=== PATIENT | female | born 1950 | race Caucasian/White ===

== ENCOUNTER 2019-03-06 16:15 | Inpatient (IN) | payer MEDICARE, OTHER ==
[~2019-03-06] VITALS: Ht 165.1 cm; Wt 56.3 kg
[2019-03-06 16:30] VITALS: BP 131/68
[2019-03-06] MEDS ORDERED: MAGNESIUM HYDROXIDE SUSPENSION 30 ML UDCUP PO PRN (20:15)
[2019-03-06] MEDS ORDERED: ACETAMINOPHEN 325 MG TABLET PO PRN (20:15)
[2019-03-06] MEDS ORDERED: ALBUTEROL SULFATE 2.5 MG/0.5 ML NEB SOLUTION NEB PRN (20:15)
[2019-03-06] MEDS ORDERED: IPRATROPIUM BROMIDE 0.5 MG/2.5 ML NEB SOLUTION NEB PRN (20:15)
[2019-03-06] MEDS ORDERED: MELATONIN 3 MG TABLET PO PRN (20:15)
[2019-03-06] MEDS ORDERED: LACTULOSE 20 GM/30 ML SOLUTION UDCUP PO PRN (20:15)
[2019-03-06] MEDS ORDERED: SODIUM PHOS/SODIUM BIPHOS 133 ML ENEMA PR PRN (20:15)
[2019-03-06] MEDS: DOCUSATE SODIUM 100 MG CAPSULE PO SCH ×2 (20:50→20:56)
[2019-03-06] MEDS: SENNA 187 MG TABLET PO SCH ×2 (20:50→20:56)
[2019-03-07 00:45] VITALS: BP 96/46
[2019-03-07 06:00] VITALS: BP 118/66
[2019-03-07 07:12] VITALS: BP 111/64
[2019-03-07 08:12] LABS: BASOPHILS % (AUTO) 1.4 % (0.0-2.0); EOSINOPHILS % (AUTO) 2.2 % (1.0-6.0); HEMATOCRIT 34.4 % (36-46); HEMOGLOBIN 12.2 g/dL (12.0-16.0); LYMPHOCYTES # (AUTO) 1.7 K/uL (1.0-4.8); LYMPHOCYTES % (AUTO) 36.4 % (22.0-44.0); MEAN CORPUSCULAR HEMOGLOBIN 33.1 pg (26.0-34.0); MEAN CORPUSCULAR HGB CONC 35.6 G/dL (31.0-37.0); MEAN CORPUSCULAR VOLUME 93 fL (80-100); MONOCYTES # (AUTO) 0.5 K/uL (0.1-1.0); MONOCYTES % (AUTO) 11.6 % (2.0-9.0); NEUTROPHILS # (AUTO) 2.3 K/uL (1.8-7.7); NEUTROPHILS % (AUTO) 48.4 % (40.0-70.0); PLATELET COUNT (AUTO) 328 K/uL (150-450); RED CELL DISTRIBUTION WIDTH 12.9 % (11.5-14.5)
[2019-03-07 08:22] LABS: ALANINE AMINOTRANSFERASE 47 U/L (12-78); ALBUMIN 3.2 g/dL (3.4-5.0); ALKALINE PHOSPHATASE 78 U/L (46-116); ANION GAP 8 mmol/L (8-16); ASPARTATE AMINOTRANSFERASE 34 U/L (15-37); BILIRUBIN,TOTAL 0.2 mg/dL (0.1-1.0); CARBON DIOXIDE 26 mmol/L (22-29); CHLORIDE 106 mmol/L (98-107); CREATININE 0.75 mg/dL (0.60-1.30); GLOMERULAR FILTR. RATE CALC > 60 mL/min (>60); GLUCOSE,RANDOM 93 mg/dL (70-110); SODIUM SERUM 140 mmol/L (136-145); TOTAL PROTEIN, SERUM 6.6 g/dL (6.4-8.2); UREA NITROGEN, BLOOD 11 mg/dL (7-18)
[2019-03-07] MEDS: DOCUSATE SODIUM 100 MG CAPSULE PO SCH ×2 (09:00→20:12)
[2019-03-07] MEDS: LISINOPRIL 10 MG TABLET PO SCH (09:00)
[2019-03-07] MEDS: ASPIRIN 325 MG TABLET PO SCH (09:51)
[2019-03-07] MEDS: MULTIVITAMINS WITH MINERALS, THERAPEUTIC TABLET PO SCH (09:51)
[2019-03-07 15:32] VITALS: BP 90/47
[2019-03-07 17:00] VITALS: BP 102/56
[2019-03-07] MEDS: ATORVASTATIN CALCIUM 40 MG TABLET PO SCH (20:06)
[2019-03-07] MEDS: SENNA 187 MG TABLET PO SCH (20:12)
[2019-03-08 06:00] VITALS: BP 106/59
[2019-03-08 07:37] VITALS: BP 110/66
[2019-03-08] MEDS: DOCUSATE SODIUM 100 MG CAPSULE PO SCH ×2 (07:58→19:38)
[2019-03-08] MEDS: ASPIRIN 325 MG TABLET PO SCH (07:58)
[2019-03-08] MEDS: MULTIVITAMINS WITH MINERALS, THERAPEUTIC TABLET PO SCH (07:58)
[2019-03-08] MEDS: LISINOPRIL 10 MG TABLET PO SCH (07:58)
[2019-03-08 17:04] VITALS: BP 100/59
[2019-03-08] MEDS: SENNA 187 MG TABLET PO SCH (19:38)
[2019-03-08] MEDS: NYSTATIN 15 GM POWDER BOTTLE TP SCH (19:38)
[2019-03-08] MEDS: ATORVASTATIN CALCIUM 40 MG TABLET PO SCH (19:38)
[2019-03-09] VITALS (8 sets, daily range): BP systolic 80–120; BP diastolic 43–73
[2019-03-09] MEDS: MULTIVITAMINS WITH MINERALS, THERAPEUTIC TABLET PO SCH (08:07)
[2019-03-09] MEDS: ASPIRIN 325 MG TABLET PO SCH (08:07)
[2019-03-09] MEDS: DOCUSATE SODIUM 100 MG CAPSULE PO SCH ×2 (08:07→20:22)
[2019-03-09] MEDS: LISINOPRIL 10 MG TABLET PO SCH (09:00)
[2019-03-09] MEDS: ENOXAPARIN SODIUM 40 MG/0.4 ML PF SYRINGE SQ SCH (13:06)
[2019-03-09] MEDS: NYSTATIN 15 GM POWDER BOTTLE TP SCH ×2 (14:48→20:18)
[2019-03-09] MEDS: ATORVASTATIN CALCIUM 40 MG TABLET PO SCH (20:18)
[2019-03-09] MEDS: SENNA 187 MG TABLET PO SCH (20:22)
[2019-03-10] MEDS: ENOXAPARIN SODIUM 40 MG/0.4 ML PF SYRINGE SQ SCH (07:57)
[2019-03-10] MEDS: NYSTATIN 15 GM POWDER BOTTLE TP SCH ×2 (07:59→19:56)
[2019-03-10] MEDS: DOCUSATE SODIUM 100 MG CAPSULE PO SCH ×2 (07:59→19:56)
[2019-03-10] MEDS: MULTIVITAMINS WITH MINERALS, THERAPEUTIC TABLET PO SCH (07:59)
[2019-03-10] MEDS: ASPIRIN 325 MG TABLET PO SCH (07:59)
[2019-03-10 08:50] VITALS: BP 95/55
[2019-03-10] MEDS: LISINOPRIL 10 MG TABLET PO SCH (09:00)
[2019-03-10 16:13] VITALS: BP 115/69
[2019-03-10] MEDS: ATORVASTATIN CALCIUM 40 MG TABLET PO SCH (19:55)
[2019-03-10] MEDS: SENNA 187 MG TABLET PO SCH (19:56)
[2019-03-10 23:30] VITALS: BP 103/59
[2019-03-11 07:30] VITALS: BP 146/57
[2019-03-11] MEDS: ENOXAPARIN SODIUM 40 MG/0.4 ML PF SYRINGE SQ SCH (09:20)
[2019-03-11] MEDS: LISINOPRIL 10 MG TABLET PO SCH (09:21)
[2019-03-11] MEDS: ASPIRIN 325 MG TABLET PO SCH (09:21)
[2019-03-11] MEDS: DOCUSATE SODIUM 100 MG CAPSULE PO SCH ×2 (09:21→19:32)
[2019-03-11] MEDS: NYSTATIN 15 GM POWDER BOTTLE TP SCH ×2 (09:21→19:33)
[2019-03-11] MEDS: MULTIVITAMINS WITH MINERALS, THERAPEUTIC TABLET PO SCH (09:21)
[2019-03-11 15:00] VITALS: BP 109/64
[2019-03-11] MEDS: ATORVASTATIN CALCIUM 40 MG TABLET PO SCH (19:32)
[2019-03-11] MEDS: SENNA 187 MG TABLET PO SCH (19:32)
[2019-03-12 00:18] VITALS: BP 98/52
[2019-03-12 07:30] VITALS: BP 134/89
[2019-03-12] MEDS: ASPIRIN 325 MG TABLET PO SCH (08:24)
[2019-03-12] MEDS: ENOXAPARIN SODIUM 40 MG/0.4 ML PF SYRINGE SQ SCH (08:24)
[2019-03-12] MEDS: DOCUSATE SODIUM 100 MG CAPSULE PO SCH ×3 (08:24→20:10)
[2019-03-12] MEDS: MULTIVITAMINS WITH MINERALS, THERAPEUTIC TABLET PO SCH (08:24)
[2019-03-12] MEDS: LISINOPRIL 10 MG TABLET PO SCH (08:27)
[2019-03-12] MEDS: NYSTATIN 15 GM POWDER BOTTLE TP SCH ×2 (08:31→20:10)
[2019-03-12 15:10] VITALS: BP 90/49
[2019-03-12] MEDS: ATORVASTATIN CALCIUM 40 MG TABLET PO SCH (20:07)
[2019-03-12] MEDS: SENNA 187 MG TABLET PO SCH (20:09)
[2019-03-13 00:02] VITALS: BP 98/53
[2019-03-13 07:04] VITALS: BP 101/54
[2019-03-13] MEDS: MULTIVITAMINS WITH MINERALS, THERAPEUTIC TABLET PO SCH (08:07)
[2019-03-13] MEDS: ASPIRIN 325 MG TABLET PO SCH (08:07)
[2019-03-13] MEDS: LISINOPRIL 10 MG TABLET PO SCH (08:08)
[2019-03-13] MEDS: DOCUSATE SODIUM 100 MG CAPSULE PO SCH ×2 (08:08→19:12)
[2019-03-13] MEDS: NYSTATIN 15 GM POWDER BOTTLE TP SCH ×2 (08:08→19:12)
[2019-03-13] MEDS: ENOXAPARIN SODIUM 40 MG/0.4 ML PF SYRINGE SQ SCH (08:08)
[2019-03-13 16:06] VITALS: BP 120/49
[2019-03-13] MEDS: ATORVASTATIN CALCIUM 40 MG TABLET PO SCH (19:12)
[2019-03-13] MEDS: SENNA 187 MG TABLET PO SCH (19:12)
[2019-03-14 03:44] VITALS: BP 110/60
[2019-03-14] MEDS: ENOXAPARIN SODIUM 40 MG/0.4 ML PF SYRINGE SQ SCH (08:12)
[2019-03-14] MEDS: NYSTATIN 15 GM POWDER BOTTLE TP SCH ×2 (08:12→19:33)
[2019-03-14] MEDS: ASPIRIN 325 MG TABLET PO SCH (08:12)
[2019-03-14] MEDS: DOCUSATE SODIUM 100 MG CAPSULE PO SCH ×2 (08:14→19:33)
[2019-03-14] MEDS: LISINOPRIL 10 MG TABLET PO SCH (08:15)
[2019-03-14] MEDS: MULTIVITAMINS WITH MINERALS, THERAPEUTIC TABLET PO SCH (08:15)
[2019-03-14 08:45] VITALS: BP 122/88
[2019-03-14 15:00] VITALS: BP 139/53
[2019-03-14] MEDS: ATORVASTATIN CALCIUM 40 MG TABLET PO SCH (19:23)
[2019-03-14] MEDS: SENNA 187 MG TABLET PO SCH (19:31)
[2019-03-15 00:12] VITALS: BP 91/46
[2019-03-15 08:00] VITALS: BP 106/47
[2019-03-15] MEDS: DOCUSATE SODIUM 100 MG CAPSULE PO SCH ×2 (08:25→20:22)
[2019-03-15] MEDS: ENOXAPARIN SODIUM 40 MG/0.4 ML PF SYRINGE SQ SCH (08:25)
[2019-03-15] MEDS: MULTIVITAMINS WITH MINERALS, THERAPEUTIC TABLET PO SCH (08:25)
[2019-03-15] MEDS: NYSTATIN 15 GM POWDER BOTTLE TP SCH ×2 (08:26→21:15)
[2019-03-15] MEDS: ASPIRIN 325 MG TABLET PO SCH (08:26)
[2019-03-15] MEDS: LISINOPRIL 10 MG TABLET PO SCH (08:26)
[2019-03-15 16:06] VITALS: BP 108/66
[2019-03-15] MEDS: SENNA 187 MG TABLET PO SCH (20:22)
[2019-03-15] MEDS: ATORVASTATIN CALCIUM 40 MG TABLET PO SCH (20:22)
[2019-03-16 01:56] VITALS: BP 132/66
[2019-03-16 07:00] VITALS: BP 108/64
[2019-03-16] MEDS: MULTIVITAMINS WITH MINERALS, THERAPEUTIC TABLET PO SCH (07:51)
[2019-03-16] MEDS: ENOXAPARIN SODIUM 40 MG/0.4 ML PF SYRINGE SQ SCH (07:51)
[2019-03-16] MEDS: NYSTATIN 15 GM POWDER BOTTLE TP SCH ×2 (07:51→20:06)
[2019-03-16] MEDS: ASPIRIN 325 MG TABLET PO SCH (07:52)
[2019-03-16] MEDS: LISINOPRIL 10 MG TABLET PO SCH ×2 (07:52→08:13)
[2019-03-16] MEDS: DOCUSATE SODIUM 100 MG CAPSULE PO SCH ×2 (07:52→20:05)
[2019-03-16] MEDS: DOCUSATE SODIUM 283 MG/5 ML MINI-ENEMA PR SCH (08:13)
[2019-03-16 16:00] VITALS: BP 128/76
[2019-03-16] MEDS: ATORVASTATIN CALCIUM 40 MG TABLET PO SCH (20:05)
[2019-03-16] MEDS: SENNA 187 MG TABLET PO SCH (20:05)
[2019-03-17 01:17] VITALS: BP 111/58
[2019-03-17 07:30] VITALS: BP 122/75
[2019-03-17] MEDS: DOCUSATE SODIUM 100 MG CAPSULE PO SCH ×2 (08:46→20:08)
[2019-03-17] MEDS: LISINOPRIL 10 MG TABLET PO SCH (08:46)
[2019-03-17] MEDS: ENOXAPARIN SODIUM 40 MG/0.4 ML PF SYRINGE SQ SCH (08:46)
[2019-03-17] MEDS: NYSTATIN 15 GM POWDER BOTTLE TP SCH ×2 (08:46→20:08)
[2019-03-17] MEDS: ASPIRIN 325 MG TABLET PO SCH (08:46)
[2019-03-17] MEDS: MULTIVITAMINS WITH MINERALS, THERAPEUTIC TABLET PO SCH (08:46)
[2019-03-17 15:20] VITALS: BP 104/48
[2019-03-17] MEDS: ATORVASTATIN CALCIUM 40 MG TABLET PO SCH (20:08)
[2019-03-17] MEDS: SENNA 187 MG TABLET PO SCH (20:08)
[2019-03-18 06:00] VITALS: BP 87/47
[2019-03-18 07:50] VITALS: BP 96/65
[2019-03-18] MEDS: MULTIVITAMINS WITH MINERALS, THERAPEUTIC TABLET PO SCH (08:29)
[2019-03-18] MEDS: DOCUSATE SODIUM 100 MG CAPSULE PO SCH ×2 (08:29→21:00)
[2019-03-18] MEDS: ASPIRIN 325 MG TABLET PO SCH (08:29)
[2019-03-18] MEDS: DOCUSATE SODIUM 283 MG/5 ML MINI-ENEMA PR SCH ×2 (08:29→09:00)
[2019-03-18] MEDS: LISINOPRIL 10 MG TABLET PO SCH (08:29)
[2019-03-18] MEDS: ENOXAPARIN SODIUM 40 MG/0.4 ML PF SYRINGE SQ SCH (08:29)
[2019-03-18] MEDS: NYSTATIN 15 GM POWDER BOTTLE TP SCH ×2 (08:30→21:00)
[2019-03-18 15:30] VITALS: BP 122/79
[2019-03-18] MEDS: ATORVASTATIN CALCIUM 40 MG TABLET PO SCH (21:00)
[2019-03-18] MEDS: SENNA 187 MG TABLET PO SCH (21:00)
[2019-03-19 06:16] LABS: BASOPHILS % (AUTO) 0.7 % (0.0-2.0); EOSINOPHILS % (AUTO) 3.8 % (1.0-6.0); HEMATOCRIT 33.7 % (36-46); HEMOGLOBIN 11.4 g/dL (12.0-16.0); LYMPHOCYTES # (AUTO) 2.6 K/uL (1.0-4.8); MEAN CORPUSCULAR HEMOGLOBIN 31.7 pg (26.0-34.0); MEAN CORPUSCULAR VOLUME 93 fL (80-100); MONOCYTES # (AUTO) 0.7 K/uL (0.1-1.0); NEUTROPHILS # (AUTO) 3.4 K/uL (1.8-7.7); NEUTROPHILS % (AUTO) 48.5 % (40.0-70.0); PLATELET COUNT (AUTO) 323 K/uL (150-450); RED BLOOD CELL COUNT(AUTO) 3.61 MIL/uL (4.00-5.20); RED CELL DISTRIBUTION WIDTH 12.8 % (11.5-14.5)
[2019-03-19 06:31] LABS: ANION GAP 10 mmol/L (8-16); CALCIUM, TOTAL 8.9 mg/dL (8.8-10.5); CARBON DIOXIDE 26 mmol/L (22-29); CHLORIDE 104 mmol/L (98-107); CREATININE 0.64 mg/dL (0.60-1.30); GLOMERULAR FILTR. RATE CALC > 60 mL/min (>60); GLUCOSE,RANDOM 91 mg/dL (70-110); SODIUM SERUM 140 mmol/L (136-145); UREA NITROGEN, BLOOD 17 mg/dL (7-18)
[2019-03-19 07:41] VITALS: BP 96/57
[2019-03-19] MEDS: ENOXAPARIN SODIUM 40 MG/0.4 ML PF SYRINGE SQ SCH (08:16)
[2019-03-19] MEDS: NYSTATIN 15 GM POWDER BOTTLE TP SCH ×2 (08:17→19:04)
[2019-03-19] MEDS: LISINOPRIL 5 MG TABLET PO SCH ×2 (08:17→08:25)
[2019-03-19] MEDS: MULTIVITAMINS WITH MINERALS, THERAPEUTIC TABLET PO SCH ×2 (08:17→08:24)
[2019-03-19] MEDS: DOCUSATE SODIUM 100 MG CAPSULE PO SCH ×4 (08:17→19:02)
[2019-03-19] MEDS: ASPIRIN 325 MG TABLET PO SCH (08:17)
[2019-03-19 17:16] VITALS: BP 141/94
[2019-03-19] MEDS: ATORVASTATIN CALCIUM 40 MG TABLET PO SCH (18:59)
[2019-03-19] MEDS: SENNA 187 MG TABLET PO SCH (19:02)
[2019-03-19 23:40] VITALS: BP 112/60
[2019-03-20 08:00] VITALS: BP 105/58
[2019-03-20] MEDS: NYSTATIN 15 GM POWDER BOTTLE TP SCH ×2 (08:08→19:44)
[2019-03-20] MEDS: DOCUSATE SODIUM 283 MG/5 ML MINI-ENEMA PR SCH (08:08)
[2019-03-20] MEDS: ASPIRIN 325 MG TABLET PO SCH (08:08)
[2019-03-20] MEDS: ENOXAPARIN SODIUM 40 MG/0.4 ML PF SYRINGE SQ SCH (08:08)
[2019-03-20] MEDS: MULTIVITAMINS WITH MINERALS, THERAPEUTIC TABLET PO SCH (08:08)
[2019-03-20] MEDS: DOCUSATE SODIUM 100 MG CAPSULE PO SCH ×2 (08:09→19:45)
[2019-03-20 18:06] VITALS: BP 113/58
[2019-03-20] MEDS: ATORVASTATIN CALCIUM 40 MG TABLET PO SCH (19:43)
[2019-03-20] MEDS: SENNA 187 MG TABLET PO SCH (19:45)
[2019-03-20 23:00] VITALS: BP 96/56
[2019-03-21 07:45] VITALS: BP 110/57
[2019-03-21] MEDS: MULTIVITAMINS WITH MINERALS, THERAPEUTIC TABLET PO SCH ×2 (09:00→09:58)
[2019-03-21] MEDS: DOCUSATE SODIUM 100 MG CAPSULE PO SCH ×3 (09:00→20:24)
[2019-03-21] MEDS: ASPIRIN 325 MG TABLET PO SCH ×2 (09:00→09:58)
[2019-03-21] MEDS: ENOXAPARIN SODIUM 40 MG/0.4 ML PF SYRINGE SQ SCH (09:58)
[2019-03-21] MEDS: NYSTATIN 15 GM POWDER BOTTLE TP SCH ×2 (10:00→20:18)
[2019-03-21 16:00] VITALS: BP 95/58
[2019-03-21] MEDS: ATORVASTATIN CALCIUM 40 MG TABLET PO SCH (20:18)
[2019-03-21] MEDS: SENNA 187 MG TABLET PO SCH (20:24)
[2019-03-22 00:11] VITALS: BP 109/61
[2019-03-22 07:51] VITALS: BP 116/56
[2019-03-22] MEDS: ENOXAPARIN SODIUM 40 MG/0.4 ML PF SYRINGE SQ SCH (08:44)
[2019-03-22] MEDS: DOCUSATE SODIUM 100 MG CAPSULE PO SCH ×4 (08:44→18:59)
[2019-03-22] MEDS: DOCUSATE SODIUM 283 MG/5 ML MINI-ENEMA PR SCH (08:44)
[2019-03-22] MEDS: NYSTATIN 15 GM POWDER BOTTLE TP SCH ×2 (08:44→18:55)
[2019-03-22] MEDS: MULTIVITAMINS WITH MINERALS, THERAPEUTIC TABLET PO SCH ×2 (08:44→08:51)
[2019-03-22] MEDS: ASPIRIN 325 MG TABLET PO SCH ×2 (08:44→08:50)
[2019-03-22 18:39] VITALS: BP 101/58
[2019-03-22] MEDS: SENNA 187 MG TABLET PO SCH ×2 (18:54→18:59)
[2019-03-22] MEDS: ATORVASTATIN CALCIUM 40 MG TABLET PO SCH (18:55)
[2019-03-23 04:30] VITALS: BP 116/65
[2019-03-23 08:00] VITALS: BP 107/63
[2019-03-23] MEDS: ASPIRIN 325 MG TABLET PO SCH (08:42)
[2019-03-23] MEDS: NYSTATIN 15 GM POWDER BOTTLE TP SCH ×2 (08:42→19:06)
[2019-03-23] MEDS: MULTIVITAMINS WITH MINERALS, THERAPEUTIC TABLET PO SCH (08:42)
[2019-03-23] MEDS: DOCUSATE SODIUM 100 MG CAPSULE PO SCH ×2 (08:42→19:06)
[2019-03-23] MEDS: ENOXAPARIN SODIUM 40 MG/0.4 ML PF SYRINGE SQ SCH (08:42)
[2019-03-23] MEDS: SENNA 187 MG TABLET PO SCH (19:06)
[2019-03-23] MEDS: ATORVASTATIN CALCIUM 40 MG TABLET PO SCH ×2 (19:06→19:12)
[2019-03-23] MEDS ORDERED: ASPI-629 PO (23:49)
[2019-03-23] MEDS ORDERED: MULT-1239 PO (23:50)
[2019-03-23] MEDS ORDERED: DOCU-275 PO (23:52)
[2019-03-23] MEDS ORDERED: ATOR40TA28 PO (23:53)
[2019-03-24 07:57] VITALS: BP 135/64
[2019-03-24] MEDS: NYSTATIN 15 GM POWDER BOTTLE TP SCH (09:00)
[2019-03-24] MEDS: DOCUSATE SODIUM 100 MG CAPSULE PO SCH (09:00)
[2019-03-24] MEDS: DOCUSATE SODIUM 283 MG/5 ML MINI-ENEMA PR SCH (09:00)
[2019-03-24] MEDS: ENOXAPARIN SODIUM 40 MG/0.4 ML PF SYRINGE SQ SCH ×2 (09:00→09:34)
[2019-03-24] MEDS: MULTIVITAMINS WITH MINERALS, THERAPEUTIC TABLET PO SCH (09:36)
[2019-03-24] MEDS: ASPIRIN 325 MG TABLET PO SCH (09:38)
== END 2019-03-24 11:00 | disposition home health service (06) | DRG 56 ==
LOC: 2WR 16:15
DX: I69.354 Hemiplegia and hemiparesis following cerebral infarction affecting left non-dominant side (principal); I63.311 Cerebral infarction due to thrombosis of right middle cerebral artery; E46 Unspecified protein-calorie malnutrition; E78.5 Hyperlipidemia, unspecified; I10 Essential (primary) hypertension; Z79.899 Other long term (current) drug therapy; R13.10 Dysphagia, unspecified; F17.210 Nicotine dependence, cigarettes, uncomplicated; Z88.0 Allergy status to penicillin; F43.23 Adjustment disorder with mixed anxiety and depressed mood; N31.9 Neuromuscular dysfunction of bladder, unspecified; K59.00 Constipation, unspecified; Z68.20 Body mass index [BMI] 20.0-20.9, adult; M19.90 Unspecified osteoarthritis, unspecified site; R47.1 Dysarthria and anarthria
CPT/HCPCS: 87081; 92507; 92508; 92521; 93970; 97112; 97116; 97150; 97163; 97167; 97530; 97535; 99366; J1650